=== PATIENT | female | born 1995 | race Caucasian/White ===

== ENCOUNTER → 2017-10-07 | Outpatient (CLI) | payer OTHER ==
[~2017-10-07] MED LIST: OMEP40CA48 PO
--- NOTE | 2017-10-07 13:48 | RADIOLOGY IMAGING REPORT ---
FACILITY: [facility] [place] PATIENT NAME: Dominga Arenas : 1995 MR: [id number] V: [id number] EXAM DATE: ORDERING PHYSICIAN: FRANCES FAJARDO TECHNOLOGIST: Location: [facility] [place] Patient: Dominga Arenas : 1995 Visit/Account:[id number] Date of Sevice: 10/07/2017 Exam type: NECK SOFT TISSUE History: neck pain, evaluate for Eagles syndrome Comparison: None. Findings: No abnormality of the styloid processes is seen. No calcifications identified in the expected locati on of the stylohyoid ligament. There is no evidence of prevertebral soft tissue swelling. Cervical spine appears unremarkable. IMPRESSION: 1. No abnormality of the styloid processes or stylohyoid ligaments. Report Dictated By: Yulia Rhodes MD at 10/07/2017 1:41 PM Report E-Signed By: Yulia Rhodes MD at 10/07/2017 1:43 PM WSN:[id number]
== END ==
LOC: RAD 10:58
PROVIDERS: ATTEND Otolaryngology
DX: M54.2 Cervicalgia (principal)
CPT/HCPCS: 70360

== ENCOUNTER → 2018-09-18 | Outpatient (REF) | payer OTHER | LOC: ZZSTITCHES 13:51 | PROVIDERS: ATTEND Physician Assistant | DX: L03.113 Cellulitis of right upper limb (principal); B95.61 Methicillin susceptible Staphylococcus aureus infection as the cause of diseases classified elsewhere | CPT/HCPCS: 87071; 87077; 87186 ==